=== PATIENT | male | born 1975 | race Caucasian/White ===

== ENCOUNTER 2021-02-01 13:35 | Emergency (ER) | payer OTHER, SELFPAY ==
[2021-02-01 16:11] VITALS: BP 139/94; PULSE 103; RESP 18; TEMP 37.2; O2SAT 98; BMI 38.0
--- NOTE | 2021-02-01 16:16 | HMH.EDUTC ---
[facility] [place] Disposition Clinical Impression: Sinusitis, Exposure to COVID-19 virus Disposition: Home, Self-Care Condition on Discharge: Good Instructions: DI for Sinusitis Additional Instructions: You have been tested for COVID19. Please isolate yourself as if you are positive until test results received. Prescriptions: Amoxicillin/Potassium Clav [Augmentin 875-125 Tablet] 1 tab PO Q12H 10 Days #20 tab Transmission Status: Pending to [facility] predniSONE [Prednisone 20mg Tab] 20 mg PO BID 5 Days #10 tab Transmission Status: Pending to [facility] Referrals: Ronal Cotter [Primary Care Provider] - Forms: Work/School Release Time of Disposition: 16:31 Medical Decision Making - Dominik Inquiry Pt receiving controlled substance: No Vital Signs: 02/01/21 16:11 02/01/21 16:17 Temperature 99 F 98.7 F Temperature Source Oral Pulse Rate 97 H Pulse Rate [Left] 103 H Respiratory Rate 18 18 Blood Pressure 139/94 H Blood Pressure [Right Arm] 139/94 H Blood Pressure Mean [Right Arm] 109 02 Sat by Pulse Oximetry 98 Orders (Tests/Meds): ORDERS Category Date Time Status Covid-19 Nasal PCR ([facility]) Routine Lab 02/01/21 16:17 Ordered [facility] [place] HPI - General Stated complaint: sinus pain, headache, fever Time Seen by Provider: 02/01/21 16:16 - History of Present Illness Provider Complaint: Sinus pain and congestion X 4 days. Fever and headache X 2 days. Several coworkers have tested positive for COVID19. Onset (ago): day(s) (4) Location: head Consistency: constant Relieving factors: none Exacerbating factors: none Associated symptoms: fever/chills, headaches, malaise Treatments prior to arrival: none - Related Data Previous Rx's Medication Instructions Recorded Amoxicillin/Potassium Clav 1 tab PO Q12H 10 Days #20 tab 02/01/21 [Augmentin 875-125 Tablet] predniSONE [Prednisone 20mg 20 mg PO BID 5 Days #10 tab 02/01/21 Tab] Allergies Allergy/AdvReac Type Severity Reaction Status Date / Time Sulfa (Sulfonamide Allergy Verified 02/01/21 16:17 Antibiotics) [facility] History - Hepatitis A Screen Attestation statement:: This patient has been screened for Hepatitis A risk factors. I have reviewed the patient's past medical history: Yes ROS Obtained: Yes All systems reviewed & no additional complaints - Constitutional Constitutional: Reports body ache, Reports chills, Reports fatigue, Reports fever(s), Reports malaise - ENT Ears, Nose, Mouth, and Throat: Reports sinus pain, Reports sinus pressure Physical Exam - General General appearance: alert, in no apparent distress - Head Head exam: normocephalic - Eye Eye exam: Present: PERRL - ENT ENT exam: Present: normal oropharynx, TM's normal bilaterally - Expanded ENT Exam Nose exam: Present: sinus tenderness Throat exam: Present: normal inspection - Neck Neck exam: Present: normal inspection - Chest Chest inspection: Present: normal inspection, symmetric chest wall rise - Respiratory Respiratory exam: Present: normal lung sounds bilaterally - Cardiovascular Cardiovascular exam: Present: regular rate, normal rhythm - Neurological Exam Neurological exam: Present: alert, oriented X3 - Psychiatric Psychiatric exam: Present: normal affect, normal mood - Skin Skin exam: Present: warm, dry, intact
[2021-02-01 16:17] VITALS: BP 139/94; PULSE 97; RESP 18; TEMP 37.1
== END 2021-02-01 16:55 | disposition home or self-care (01) ==
PROVIDERS: Emergency Provider Physician Assistant; PCP Family Medicine
DX: U07.1 COVID-19 (principal); Z20.822 Contact with and (suspected) exposure to COVID-19
CPT/HCPCS: 99202; G0463; U0003

== ENCOUNTER → 2023-01-05 08:54 | Outpatient (CLI) | payer OTHER, SELFPAY ==
--- NOTE | 2023-01-05 08:54 | US_ITS ---
FINAL REPORT CLINICAL HISTORY: bilateral leg weakness FINDINGS: COMPLETE ANKLE/BRACHIAL INDICES BILATERAL Complete ankle brachial indices were obtained. The right GLADIS is 1.3. The left GLADIS is 1.2. IMPRESSION: ABIs are within normal limits bilaterally. Reviewed, Interpreted and Dictated by Ulices Ignacio III, MD Transcribed by Jinny Owens Authenticated and . [facility]
--- NOTE | 2023-01-05 08:54 | CA_ITS ---
FINAL REPORT TECHNIQUE: Duplex color Doppler with spectral analysis performed of the lower extremities. CLINICAL HISTORY: claudication, HTN FINDINGS: RIGHT LOWER EXTREMITY: Velocities cm/sec: ROLL LINE OPERATOR: 89 SFA Prox: 73 SFA Mid: 72 SFA Dist: 68 POP: 49 CNP: 48 TARAN: 50 PER A PROX: 41 Waveforms are triphasic. LEFT LOWER EXTREMITY: Velocities cm/sec: ROLL LINE OPERATOR: 76 SFA Prox: 60 SFA Mid: 62 SFA Dist: 53 POP: 37 CNP: 48 TARAN: 42 PER A PROX:50 Waveforms are triphasic. IMPRESSION: No significant peripheral artery disease. Reviewed, Interpreted and Dictated by Ulices Ignacio III, MD Transcribed by Jinny Owens Authenticated and [facility]
[2023-01-05 09:34] VITALS: BMI 38.0
[2023-01-05 09:59] VITALS: BP 142/85; PULSE 67; RESP 18; TEMP 36.1; O2SAT 99
[2023-01-05 10:14] LABS: Chloride 102 mmol/L (98-107); Potassium 4.3 mmoL/L (3.5-5.1); Sodium 140 mmol/L (136-145)
[2023-01-05 10:17] LABS: Anion Gap 9.3 mEq/L (5-15); Blood Urea Nitrogen 21 mg/dl (9-20); Calcium 9.5 mg/dl (8.4-10.2); Carbon Dioxide 33 mmol/L (22.0-30.0); Creatinine Clearance Estimated 121 mL/min (50-200); Estimated Glomerular Filt Rate 65 ml/min (>60); GFR (African American) 78 ML/MIN (>60); Glucose 78 mg/dl (74-100)
[2023-01-05 10:30] VITALS: BP 111/77; PULSE 58; RESP 18; O2SAT 99
== END ==
PROVIDERS: PCP Family Medicine; Visit Provider Nurse Practitioner
DX: R06.00 Dyspnea, unspecified (principal); R29.898 Other symptoms and signs involving the musculoskeletal system; I73.9 Peripheral vascular disease, unspecified; E66.9 Obesity, unspecified; Z68.38 Body mass index [BMI] 38.0-38.9, adult; Z82.49 Family history of ischemic heart disease and other diseases of the circulatory system
CPT/HCPCS: 75574; 80048; 93923; 93925; Q9967

== ENCOUNTER → 2023-01-10 15:01 | Outpatient (POV) | payer OTHER, SELFPAY ==
[2023-01-10 15:39] VITALS: BP 137/88; PULSE 76; RESP 18; O2SAT 98; BMI 37.2
--- NOTE | 2023-01-10 15:46 | EXP.PAIN.OV ---
HPI Data of Consult Patient: new to practice Consult date: 01/10/23 Requesting Physician: Shelbi Rawls APRN Primary Care Provider: Ronal Cotter Consult Narrative Reason for consult: Left hip pain, low back pain History of present illness: Mr. Britt is a 47 year old male who presents today as a new patient. He is a referral from Dr. Huston's office. Today he rates his pain a 4 out of 10. Patient states his pain is all around his low back at the left side and into his left hip with sometimes radiating symptoms to his groin. Patient does describe this as an aching, sharp sensation that is worse with increased activity. He does state often times it is worse with prolonged sitting, walking or going up stairs. Patient denies any specific trauma or injury that initially led to the symptoms. He states it has been going on for the last couple of years and originally he was able to go to the chiropractor and get improvement. He states over the last 6 months or more when he did go it did not relieve his symptoms. He does state that it helps some however he continues to have the constant pain. Patient did go to Dr. Brown office to see about possible injections however he stated he did not do SI or hip injections. He states he did give a oral steroid pack however it did not really provide good relief. Patient does do at home exercising and stretching for longer than 6 weeks with minimal improvement. Patient has also been to Dr. Ramirez in [place] for his low back pain and neck pain where Dr. Ramirez was not recommending lumbar surgery. He states in the past he has mentioned about doing a cervical fusion however he told the patient that he would not recommend until he was having worsening pain symptoms. Patient denies any recent imaging. He is currently managed with tramadol 50 mg twice a day and pregabalin 75 mg twice a day from outside providers. Patient denies any side effects from this medication. He does state that he has tried [id number] medications such as Tylenol and ibuprofen along with heat and ice and topicals with minimal relief. His Dominik is [id number]. Its been reviewed and appropriate. *Patient has done conservative therapy for longer than 6 months for this current episode including medications prescribed by his primary care doctor and stretching and exercises at home for the entire length of this timeframe with minimal relief. CC: Shelbi Rawls APRN [facility] Disclaimer: The information contained in this section may have been updated after the patient was seen, as this information can be updated by other users. Medical History (Updated 01/10/23 @ 15:54 by Shelbi Rawls APRN) Arthritis Claudication Dehiscence of appendectomy wound Dyspnea HTN (hypertension) with goal to be determined Obesity Surgical History History of appendectomy History of carpal tunnel release Status post de Quervain's release surgery Family History Other Family history of cardiac disorder Family history of diabetes mellitus Social History (Updated 01/10/23 @ 15:39 by Adelaida Sosa RN) Smoking Status: Never smoker alcohol intake: never substance use type: denies use current occupational status: employed Travel in the last 8 weeks: None Review of Systems Review of Systems Review of systems:: pertinent systems reviewed and negative unless documented below Review of systems (narrative): Review of Systems: General: No recent weight changes, no fever, no sleep disturbances Respiratory: No cough, no shortness of air, no recurring pulmonary infections Cardiovascular/peripheral vascular: No chest pain, no palpitations, no edema, no shortness of breath Gastrointestinal: No new onset incontinence, normal bowel movements reported Genitourinary: No new onset incontinence Musculoskeletal: Low back pain, left-sided, left hip pain, lef
== END | disposition home or self-care (01) ==
PROVIDERS: PCP Family Medicine; Visit Provider Nurse Practitioner Family
DX: M54.42 Lumbago with sciatica, left side (principal); G89.29 Other chronic pain; M25.552 Pain in left hip; M46.1 Sacroiliitis, not elsewhere classified
CPT/HCPCS: 99202; G0463

== ENCOUNTER 2023-01-25 13:32 | Day surgery (SDC) | payer OTHER, SELFPAY ==
[2023-01-25 13:54] VITALS: BP 130/88; PULSE 92; RESP 18; TEMP 37; O2SAT 99; BMI 36.5
[2023-01-25 13:57] VITALS: BP 141/97; PULSE 86; RESP 18; O2SAT 96
[2023-01-25 14:01] VITALS: BP 141/97; PULSE 86; RESP 18; O2SAT 98
[2023-01-25 14:02] VITALS: BP 131/86; PULSE 79; RESP 18; O2SAT 99
--- NOTE | 2023-01-25 14:08 | EXP.PAIN.PRO ---
Procedure Date: 01/25/23 Time: 13:50 Anesthesiologist:: Lio Bucio CRNA Complications:: None Pre-procedure Diagnosis:: Left sacroiliitis. Post-procedure Diagnosis:: Same. Indications for Procedure:: Patient is a very pleasant 47-year-old male who comes our clinic today for left sacroiliac joint injection. Patient has extreme point tenderness over the left sacroiliac joint upon examination. Patient complains of difficulty transitioning from sitting to standing. Ambulation increases point tenderness over the left sacroiliac joint. He rates his pain 6/10. Procedure Details:: Procedure: Left sacroiliac injection under fluoroscopy Informed consent was obtained and the risk and benefits of the procedure were explained to the patient.~ The patient was taken to the procedure room and noninvasive monitors were placed including noninvasive blood pressure cuff and pulse oximeter.~ The patient was placed prone on the procedure table.~ The~ left hip was cleansed using Betadine as a cleansing solution.~ C-arm fluorosocpy was used to view the left SI joint.~ The skin and subcutaneous tissues were anesthetized using Lidocaine 1.5% and a 25-gauge needle.~ After this, a 22-gauge spinal needle was inserted under fluoroscopic guidance into the inferior aspect of the left SI joint.~ Omnipaque dye was injected and a good spread was seen throughout the joint.~ After this, approximately 5 mL of bupivacaine 0.25% and Depo-Medrol 40 mg was incrementally injected into the sacroiliac joint.~ The patient tolerated the procedure well with no complications.~ The patient was observed in the Pain Clinic for a period of 30-45 minutes, then discharged home neurologically intact.~ Plan and Disposition:: Patient was discharged without incident.
== END 2023-01-25 14:02 | disposition home or self-care (01) ==
LOC: SC.PAINP 13:33
PROVIDERS: PCP Family Medicine; Visit Provider Nurse Anesthetist, Certified Registered
DX: M46.1 Sacroiliitis, not elsewhere classified (principal)
CPT/HCPCS: 27096; G0260; J1040

== ENCOUNTER → 2023-02-16 15:07 | Outpatient (POV) | payer OTHER, SELFPAY ==
--- NOTE | 2023-02-16 15:20 | EXP.PAIN.SOA ---
[facility] Pain Management SOAP Note Subjective:: Patient is a pleasant 47-year-old male who presents today for follow-up of left SI injection on 01/25/2023. We are currently treating the patient for low back pain with left hip pain, left sacroiliitis. Today he rates his pain a 2 out of 10. Patient states he has had at least a 50% improvement following this injection and that he notices improvement with his movements that they are easier and not as intense. He states he does still have some pressure in that area that he notices with prolonged sitting however it is overall much more tolerable. He does state that he has noticed a new pain under his left buttocks area and thinks he might of pulled a muscle. He also states that his left foot on the side has moments of where it feels that it gets warm. He is unsure if this has anything to do with the possible muscle pull. Patient is currently prescribed tramadol 50 mg twice a day and pregabalin 75 mg twice a day. Patient denies any side effects from these medications. He does state that he just recently was changed to the gabapentin. His Dominik is [id number]. Its been reviewed and appropriate. Review of Systems: General: No recent weight changes, no fever, no sleep disturbances Respiratory: No cough, no shortness of air, no recurring pulmonary infections Cardiovascular/peripheral vascular: No chest pain, no palpitations, no edema, no shortness of breath Gastrointestinal: No new onset incontinence, normal bowel movements reported Genitourinary: No new onset incontinence Musculoskeletal: Low back pain, left buttocks pain Psychiatric: [Normal mood/affect] Neurological: [Denies weakness in extremities], [denies balance issues] Objective:: Physical Exam: General: Alert and oriented x3, no acute distress, pleasant and cooperative Lungs: Respirations even and unlabored, symmetrical chest expansion Eyes: PERRL Musculoskeletal: Flexion and extension of lumbar [spine] somewhat guarded secondary to pain, [antalgic gait noted] point tenderness along left piriformis muscle Neurological: Speech clear, no gross sensory deficit Assessment:: Low back pain with left hip pain, left sacroiliitis left piriformis syndrome Plan:: Patient has had significant improvement following his SI injection however he has new point tenderness along his left piriformis muscle. I have discussed with the patient that he may benefit from a piriformis injection. Risk and benefits were explained to the patient however at this time he would like to wait. I will order the patient a compounding cream. Patient will return to clinic in 1 month for reevaluation of symptoms and plan of care. Patient has been instructed to contact the clinic with any concerns before the next appointment. Dr. Diaz has reviewed this note and agrees with this plan of care. This note was dictated using voice recognition software and make contain errors or omissions. [facility] Disclaimer: The information contained in this section may have been updated after the patient was seen, as this information can be updated by other users. Medical History Arthritis Claudication Dehiscence of appendectomy wound Dyspnea HTN (hypertension) with goal to be determined Obesity Surgical History History of appendectomy History of carpal tunnel release Status post de Quervain's release surgery Family History Other Family history of cardiac disorder Family history of diabetes mellitus Social History Smoking Status: Never smoker alcohol intake: never substance use type: denies use current occupational status: employed Travel in the last 8 weeks: None
[2023-02-16 15:39] VITALS: BP 125/87; PULSE 75; RESP 18; O2SAT 99; BMI 36.9
== END ==
PROVIDERS: PCP Family Medicine; Visit Provider Nurse Practitioner Family
DX: M46.1 Sacroiliitis, not elsewhere classified (principal); G57.02 Lesion of sciatic nerve, left lower limb; M54.50 Low back pain, unspecified
CPT/HCPCS: 99212; G0463

== ENCOUNTER → 2023-03-23 15:03 | Outpatient (POV) | payer OTHER, SELFPAY ==
--- NOTE | 2023-03-23 15:50 | EXP.PAIN.SOA ---
[facility] Pain Management SOAP Note Subjective:: Patient is a pleasant 47-year-old male who presents today for 1 month follow-up. We are currently treating the patient for degenerative disc disease of lumbar spine with lumbar radiculopathy symptoms, left hip pain, left sacroiliitis. Today he rates his pain a 4 out of 10. Patient denies any new trauma or injury. He does state that he started to experience a little bit more pain since our last visit. Patient did previously have a left SI injection that did provide at least 50% improvement and was continuing to provide relief at his last visit. He does state that he still has much more improvement from his initial visit to our office and that it is still manageable. He does state that he notices some more pain in his lower buttocks but it is often with prolonged positioning of sitting a certain way. From our last visit he also states he continues to have the warm sensation that is in his lower left foot. He states there is no pain or burning and that when he touches around the area it does not feel hot. Patient was prescribed compounding cream at our last visit and he states it does help. Patient denies trying the cream on his foot area. His Dominik is [id number]. Its been reviewed and appropriate. Review of Systems: General: No recent weight changes, no fever, no sleep disturbances Respiratory: No cough, no shortness of air, no recurring pulmonary infections Cardiovascular/peripheral vascular: No chest pain, no palpitations, no edema, no shortness of breath Gastrointestinal: No new onset incontinence, normal bowel movements reported Genitourinary: No new onset incontinence Musculoskeletal: Left hip pain Psychiatric: [Normal mood/affect] Neurological: [Denies weakness in extremities], [denies balance issues] Objective:: Physical Exam: General: Alert and oriented x3, no acute distress, pleasant and cooperative Lungs: Respirations even and unlabored, symmetrical chest expansion Eyes: PERRL Musculoskeletal: Flexion and extension of lumbar [spine] somewhat guarded secondary to pain Neurological: Speech clear, no gross sensory deficit Assessment:: Degenerative disc disease of lumbar spine with lumbar radiculopathy symptoms, left hip pain, left sacroiliitis Plan:: Patient has continued to have relief following his SI injection and currently states his pain is still manageable. I have discussed with the patient in future that he may benefit from left-sided piriformis injections or possible left superior cluneal injections. We will discuss this at future visits. Patient will return to clinic in 1 month for reevaluation of symptoms and plan of care. Patient has been instructed to contact the clinic with any concerns before the next appointment. Dr. Diaz has reviewed this note and agrees with this plan of care. This note was dictated using voice recognition software and make contain errors or omissions. [facility] Disclaimer: The information contained in this section may have been updated after the patient was seen, as this information can be updated by other users. Medical History Arthritis Claudication Dehiscence of appendectomy wound Dyspnea HTN (hypertension) with goal to be determined Obesity Surgical History History of appendectomy History of carpal tunnel release Status post de Quervain's release surgery Family History Other Family history of cardiac disorder Family history of diabetes mellitus Social History Smoking Status: Never smoker alcohol intake: never substance use type: denies use current occupational status: employed Travel in the last 8 weeks: None
[2023-03-23 16:03] VITALS: BP 136/90; PULSE 72; RESP 18; O2SAT 96; BMI 36.9
== END ==
PROVIDERS: PCP Family Medicine; Visit Provider Nurse Practitioner Family
DX: M51.16 Intervertebral disc disorders with radiculopathy, lumbar region (principal); M25.552 Pain in left hip; M46.1 Sacroiliitis, not elsewhere classified
CPT/HCPCS: 99212; G0463

== ENCOUNTER → 2023-04-20 11:23 | Outpatient (POV) | payer OTHER, SELFPAY ==
[2023-04-20 12:03] VITALS: BP 146/97; PULSE 83; RESP 18; O2SAT 98; BMI 35.9
--- NOTE | 2023-04-20 12:05 | EXP.PAIN.SOA ---
[facility] Pain Management SOAP Note Subjective:: Patient is a pleasant 47-year-old male who presents today for 1 month follow-up. We are currently treating the patient for degenerative disc disease of lumbar spine with lumbar radiculopathy symptoms, sacroiliitis, left hip pain. Today he rates his pain as a 2 out of 10. Patient denies any new trauma or injury from our last visit. He does state that he will occasionally have flareups in his low back and into his hip. He does describe it as an aching, throbbing sensation with occasional sharp stabbing pains that is worse with increased activity or ambulation. He does state from the last injection of his SI joint that it does still seem to be manageable. He states the pain came come and go at different times. Patient states he has been off this last week for vacation at work. He is prescribed compounding cream. Patient denies any recent imaging and does state that he is questioning whether or not anything has worsened since his last imaging. His Dominik has been reviewed and is appropriate. Review of Systems: General: No recent weight changes, no fever, no sleep disturbances Respiratory: No cough, no shortness of air, no recurring pulmonary infections Cardiovascular/peripheral vascular: No chest pain, no palpitations, no edema, no shortness of breath Gastrointestinal: No new onset incontinence, normal bowel movements reported Genitourinary: No new onset incontinence Musculoskeletal: Low back pain, hip pain Psychiatric: [Normal mood/affect] Neurological: [Denies weakness in extremities], [denies balance issues] Objective:: Physical Exam: General: Alert and oriented x3, no acute distress, pleasant and cooperative Lungs: Respirations even and unlabored, symmetrical chest expansion Eyes: PERRL Musculoskeletal: Flexion and extension of lumbar [spine] somewhat guarded secondary to pain, [antalgic gait noted] Neurological: Speech clear, no gross sensory deficit Assessment:: Degenerative disc disease of lumbar spine with lumbar radiculopathy symptoms, sacroiliitis, left hip pain Plan:: Patient does continue to have pain in his low back with radiating symptoms. Patient had limited range of motion of his lumbar spine. I have discussed with the patient that it may be beneficial to order updated imaging. Patient acknowledges and agrees with this plan of care. I will order x-ray imaging of his lumbar spine along with his bilateral SI joints and MRI without contrast of his lumbar spine to follow. Patient will return to clinic in 1 month following his imaging for reevaluation of symptoms and plan of care. Patient has been instructed to contact the clinic with any concerns before the next appointment. Dr. Diaz has reviewed this note and agrees with this plan of care. This note was dictated using voice recognition software and make contain errors or omissions. [facility] Disclaimer: The information contained in this section may have been updated after the patient was seen, as this information can be updated by other users. Medical History Arthritis Claudication Dehiscence of appendectomy wound Dyspnea HTN (hypertension) with goal to be determined Obesity Surgical History History of appendectomy History of carpal tunnel release Status post de Quervain's release surgery Family History Other Family history of cardiac disorder Family history of diabetes mellitus Social History Smoking Status: Never smoker alcohol intake: never substance use type: denies use current occupational status: employed Travel in the last 8 weeks: None
== END ==
LOC: SC.PAIN 11:24
PROVIDERS: PCP Family Medicine; Visit Provider Nurse Practitioner Family
DX: M51.16 Intervertebral disc disorders with radiculopathy, lumbar region (principal); M46.1 Sacroiliitis, not elsewhere classified; M25.552 Pain in left hip
CPT/HCPCS: 99212; G0463

== ENCOUNTER → 2023-05-19 09:19 | Outpatient (CLI) | payer OTHER, SELFPAY ==
--- NOTE | 2023-05-19 09:24 | MR_ITS ---
FINAL REPORT CLINICAL HISTORY: LOW BACK PAIN COMPARISON: None FINDINGS: Multiplanar MR imaging of the lumbar spine was performed without contrast. On the sagittal T2-weighted images, there is abnormal decreased signal L1-2 through L4-5. The vertebrae are of normal height. The vertebral alignment is normal. T12-L1: There is no significant canal stenosis or neuroforaminal narrowing. L1-2: Mild diffuse disc bulge. Mild to moderate bilateral neuroforaminal narrowing. L2-3: Mild diffuse disc bulge. Moderate bilateral neuroforaminal narrowing. L3-4: Mild diffuse disc bulge. Mild to moderate bilateral neuroforaminal narrowing. L4-5: Moderate diffuse disc bulge. Moderate bilateral neuroforaminal narrowing. L5-S1: Broad-based midline disc protrusion. Mild spinal canal compromise. IMPRESSION: Neuroforaminal narrowing at L2-3, L3-4, and L4-5. Broad-based midline protrusion at L5-S1 with spinal canal compromise. Reviewed, Interpreted and Dictated by Miguel Slaughter MD Transcribed by Malinda Longoria Authenticated and [facility]
== END ==
PROVIDERS: PCP Family Medicine; Visit Provider Nurse Practitioner Family
DX: M54.50 Low back pain, unspecified (principal)
CPT/HCPCS: 72148; 76376

== ENCOUNTER → 2023-05-31 11:24 | Outpatient (POV) | payer OTHER, SELFPAY ==
[2023-05-31 11:40] VITALS: BP 143/96; PULSE 85; RESP 18; O2SAT 97; BMI 354.9
--- NOTE | 2023-05-31 11:48 | EXP.PAIN.SOA ---
[facility] Pain Management SOAP Note Subjective:: Patient is a very pleasant 39-year-old male comes our clinic today for follow-up visit regarding low left side back pain as well as left hip radicular symptoms at times. Patient works full-time at a factory. He reports being on his feet 10 to 12 hours a day. Patient is status post left sacroiliac joint injection several months ago. He reports some minimal relief regarding that injection. I reviewed the patient's lumbar MRI with him today. He has multilevel degenerative disc lumbar spine. Multilevel disc bulge lumbar spine. His Dominik #[id number] is been reviewed and appropriate. Patient rates his pain 2/10. Patient takesNubametane 750 mg 1 p.o. twice daily from his PCP. Patient states this medication does help lower his pain level overall. Objective:: Patient is awake alert [place] x 3. In no acute distress. Flexion-extension lumbar spine somewhat guarded secondary to pain. Deep tendon reflexes upper and lower extremities normal. Motor strength upper and lower extremities normal. There is no gross sensory deficit. Gait is normal. Assessment:: Degenerative disc disease lumbar spine multilevels. Lumbar radiculopathy. Multilevel disc bulge lumbar spine. Plan:: Discussed lumbar epidural steroid injection at the L4-5 level with the patient. Answered his questions. Patient will think about this intervention regarding his low back pain as well as left hip and leg radicular symptoms. [facility] Disclaimer: The information contained in this section may have been updated after the patient was seen, as this information can be updated by other users. Medical History Arthritis Claudication Dehiscence of appendectomy wound Dyspnea HTN (hypertension) with goal to be determined Obesity Surgical History History of appendectomy History of carpal tunnel release Status post de Quervain's release surgery Family History Other Family history of cardiac disorder Family history of diabetes mellitus Social History Smoking Status: Never smoker alcohol intake: never substance use type: denies use current occupational status: employed Travel in the last 8 weeks: None
== END ==
LOC: SC.PAIN 11:24
PROVIDERS: PCP Family Medicine; Visit Provider Nurse Anesthetist, Certified Registered
DX: M51.16 Intervertebral disc disorders with radiculopathy, lumbar region (principal); M51.26 Other intervertebral disc displacement, lumbar region; M46.1 Sacroiliitis, not elsewhere classified
CPT/HCPCS: 99212; G0463

== ENCOUNTER 2023-06-27 15:33 | Outpatient (CLI) | payer BC, SELFPAY ==
--- NOTE | 2023-06-27 15:43 | XR_ITS ---
FINAL REPORT CLINICAL HISTORY: LT FOOT PAIN FINDINGS: LEFT FOOT Three views of the left foot demonstrate no acute fracture or dislocation. The visualized joint spaces are normally aligned. There is a moderate-sized plantar spur. The soft tissues are unremarkable. IMPRESSION: No acute bony abnormality. Reviewed, Interpreted and Dictated by Miguel Slaughter MD Transcribed by Piper Hernandez Authenticated and [facility]
== END 2023-06-27 23:59 ==
LOC: RAD 15:37
PROVIDERS: PCP Family Medicine; Visit Provider Nurse Practitioner Family
DX: M79.672 Pain in left foot (principal)
CPT/HCPCS: 73630

== ENCOUNTER 2024-01-19 15:05 | Outpatient (POV) | payer BC, SELFPAY ==
[2024-01-19 15:40] VITALS: BP 129/85; PULSE 86; RESP 16; O2SAT 96; BMI 37.2
--- NOTE | 2024-01-19 16:11 | A.OFFVIS_ITS ---
[facility] Disclaimer: The information contained in this section may have been updated after the patient was seen, as this information can be updated by other users. Medical History Arthritis Claudication Dehiscence of appendectomy wound Dyspnea HTN (hypertension) with goal to be determined Obesity Surgical History History of appendectomy History of carpal tunnel release Status post de Quervain's release surgery Family History Other Family history of cardiac disorder Family history of diabetes mellitus Social History Smoking Status: Never smoker alcohol intake: never substance use type: denies use current occupational status: other Travel in the last 8 weeks: None PM Subjective & Objective Subjective Subjective:: Patient is a pleasant 48-year-old male who presents today for follow-up. Today he rates his pain a 3 out of 10. Patient does state that the Lyrica his PCP provided is helping significantly in combination with the compounded cream from our office. Patient does state that it significantly helps his hip as well as when he gets migraines he puts it on the back of his neck and it is relieved very quickly. Patient does state that he needs refills on his compounded cream. His Dominik has been reviewed and is appropriate. Review of Systems: General: No recent weight changes, no fever, no sleep disturbances Respiratory: No cough, no shortness of air, no recurring pulmonary infections Cardiovascular/peripheral vascular: No chest pain, no palpitations, no edema, no shortness of breath Gastrointestinal: No new onset incontinence, normal bowel movements reported Genitourinary: No new onset incontinence Musculoskeletal: Low back pain, hip pain Psychiatric: [Normal mood/affect] Neurological: [Denies weakness in extremities], [denies balance issues] Pain at rest (0-10 scale): 3 Objective Objective:: Physical Exam: General: Alert and oriented x3, no acute distress, pleasant and cooperative Lungs: Respirations even and unlabored, symmetrical chest expansion Eyes: PERRL Musculoskeletal: Flexion and extension of lumbar [spine] somewhat guarded secondary to pain, [antalgic gait noted] Neurological: Speech clear, no gross sensory deficit Has patient had previous pain injection?: No Conservative treatment options previously tried: Home exercise plan Length of treatment: Longer than 6 weeks Meds Home Medications and Allergies Home Medications ?Medication ?Instructions ?Recorded ?Confirmed ?Type duloxetine 60 mg capsule,delayed 60 mg PO DAILY . 12/27/22 01/19/24 History release esomeprazole magnesium 40 mg 40 mg PO DAILY . 12/27/22 01/19/24 History capsule,delayed release gabapentin 100 mg capsule 100 mg PO DAILY PRN Pain 12/27/22 01/19/24 History losartan 50 mg tablet 25 mg PO DAILY . 12/27/22 01/19/24 History nabumetone 750 mg tablet 750 mg PO BID . 12/27/22 01/19/24 History tramadol 50 mg tablet 50 mg PO BID Pain 12/27/22 01/19/24 History New Prescriptions to Start Prescriptions: Allergies Allergy/AdvReac Type Severity Reaction Status Date / Time Sulfa (Sulfonamide Allergy Verified 07/21/23 15:10 Antibiotics) Assessment and Plan *Assessment and plan (1) Low back pain: Status: Acute Qualifiers: Chronicity: chronic Back pain laterality: left Sciatica presence: with sciatica Sciatica laterality: sciatica of left side Qualified Code(s): M54.42 - Lumbago with sciatica, left side; G89.29 - Other chronic pain Category: Medical Code(s): M54.50 - Low back pain, unspecified (2) Left hip pain: Status: Acute Category: Medical Code(s): M25.552 - Pain in left hip Plan I will refill the patient's compounded cream and provide 5 additional refills. Patient will return to clinic in 6 months for reevaluation of symptoms and plan of care. Patient has been instructed to contact the clinic with any concerns before the next appointment. Dr. Diaz has reviewed this note and agrees with this plan of care. This note was dictated using voice recognition software and make contain errors or omissions. All injections are used with Lidocaine or Bupivacaine and Depo Medrol.
== END 2024-01-19 23:59 | disposition home or self-care (01) ==
LOC: SC.PAIN 15:06
PROVIDERS: PCP Family Medicine; Visit Provider Nurse Practitioner Family
DX: M54.42 Lumbago with sciatica, left side (principal); G89.29 Other chronic pain; M25.552 Pain in left hip
CPT/HCPCS: 99212; G0463

== ENCOUNTER 2024-03-28 15:16 | Outpatient (CLI) | payer BC, SELFPAY ==
--- NOTE | 2024-03-28 15:18 | XR_ITS ---
PROCEDURE INFORMATION: Exam: XR Left Foot Exam date and time: 03/28/2024 3:19 PM Age: 48 years old Clinical indication: Pain; Foot; Left; Additional info: Foot pain TECHNIQUE: Imaging protocol: Radiologic exam of the left foot. Views: 3 or more views. COMPARISON: CR XR FOOT WT BEARING LT 3V 03/28/2024 3:19 PM FINDINGS: Bones/joints: There is no evidence of acute fracture.There is no evidence of malalignment or dislocation. Degenerative changes in the 1st metatarsophalangeal joint and IP joint Soft tissues: Normal. IMPRESSION: There is no evidence of acute fracture.There is no evidence of malalignment or dislocation.
--- NOTE | 2024-03-28 15:18 | XR_ITS ---
PROCEDURE INFORMATION: Exam: XR Right Foot Exam date and time: 03/28/2024 3:19 PM Age: 48 years old Clinical indication: Pain; Foot; Right; Additional info: Foot pain TECHNIQUE: Imaging protocol: Radiologic exam of the right foot. Views: 3 or more views. COMPARISON: US ARTERIAL LOWER EXT REST 01/05/2023 1:13 PM FINDINGS: Bones/joints: Degenerative changes in the 1st metatarsophalangeal joint and IP joint and tarsal bones. There is no evidence of acute fracture.There is no evidence of malalignment or dislocation. Soft tissues: Normal. IMPRESSION: There is no evidence of acute fracture.There is no evidence of malalignment or dislocation.
== END 2024-03-28 23:59 | disposition home or self-care (01) ==
LOC: RAD 15:16
PROVIDERS: PCP Family Medicine; Visit Provider Podiatrist
DX: M79.671 Pain in right foot (principal); M79.672 Pain in left foot
CPT/HCPCS: 73630

== ENCOUNTER 2024-04-24 12:32 | Outpatient (CLI) | payer BC, SELFPAY ==
--- NOTE | 2024-04-24 12:38 | XR_ITS ---
FINAL REPORT CLINICAL HISTORY: left foot pain COMPARISON: 06/27/2023 FINDINGS: LEFT FOOT Three views demonstrate no acute fracture or dislocation. The joint spaces appear normal. No acute soft tissue abnormality is seen. A moderate plantar spur is noted. There is an os trigonum posteriorly measuring 11 mm. IMPRESSION: No acute bony abnormality. Reviewed, Interpreted and Dictated by Miguel Slaughter MD Transcribed by Cindy Banks Authenticated and [facility]
== END 2024-04-24 23:59 | disposition home or self-care (01) ==
LOC: RAD 12:33
PROVIDERS: PCP Nurse Practitioner Family; Visit Provider Podiatrist
DX: M79.672 Pain in left foot (principal)
CPT/HCPCS: 73630

== ENCOUNTER 2024-05-16 12:46 | Outpatient (CLI) | payer BC, SELFPAY ==
--- NOTE | 2024-05-16 12:47 | MR_ITS ---
FINAL REPORT CLINICAL HISTORY: Left Foot Stress Fracture. FINDINGS: Multiplanar MR imaging of the foot was performed without contrast. There are mild degenerative changes. The bony structures are intact without evidence of fracture, bone bruise or marrow edema. The flexor and extensor tendons are intact. No ligamentous injury is identified. The musculature is intact. There is posterior plantar fasciitis with full-thickness tear medially. Postoperative change could also have a similar appearance. No soft tissue mass or cyst is identified. IMPRESSION: Posterior plantar fasciitis with full-thickness tear versus postoperative change. Reviewed, Interpreted and Dictated by Ulices Ignacio III, MD Transcribed by Piper Hernandez Authenticated and [facility]
== END 2024-05-16 23:59 | disposition home or self-care (01) ==
PROVIDERS: PCP Nurse Practitioner Family; Visit Provider Podiatrist
DX: M77.52 Other enthesopathy of left foot and ankle (principal); M84.375S Stress fracture, left foot, sequela; M79.672 Pain in left foot
CPT/HCPCS: 73718

== ENCOUNTER 2024-06-14 09:57 | Outpatient (CLI) | payer BC, SELFPAY ==
--- NOTE | 2024-06-14 10:04 | XR_ITS ---
FINAL REPORT CLINICAL HISTORY: Right Shoulder Pain COMPARISON: None FINDINGS: RIGHT SHOULDER Three views demonstrate no acute fracture or dislocation. There are mild hypertrophic changes at the acromioclavicular joint. The glenohumeral joint is intact. The soft tissues are unremarkable. IMPRESSION: Degenerative changes without acute bony abnormality. Reviewed, Interpreted and Dictated by Miguel Slaughter MD Transcribed by Cindy Banks Authenticated and . [facility]
== END 2024-06-14 23:59 | disposition home or self-care (01) ==
LOC: RAD 10:00
PROVIDERS: PCP Nurse Practitioner Family; Visit Provider Physician Assistant
DX: M25.511 Pain in right shoulder (principal)
CPT/HCPCS: 73030

== ENCOUNTER 2024-07-04 15:00 | Outpatient (RCR) | payer BC, SELFPAY ==
--- NOTE | 2024-06-19 14:50 | HMH.PTOPEV ---
PT Outpatient Evaluation Rehab PT Outpatient Evaluation Start: 06/19/24 13:52 Freq: Status: Active Protocol: Document 06/19/24 13:52 [email or web address] (Rec: 06/19/24 14:50 [email or web address] [id number]) E-signed By Lio Ng, PT Outpatient Therapy Subjective History Subjective History Pt. is a 48 year old male who presents to [facility] Outpatient Physical Therapy Services in [place] for the initial evaluation this date(06/19/24) w/ c/o acute on chronic and constant LLE ankle and ft. P!, popping, and stiffness of insidious onset that has progressively been getting worse since 05/20/24. Pt. denies trauma as to onset nor to symptoms worsening. Pt. reports managing LLE plantarfasciitis for 1 year w/ cortisone injections that gave him a little of symptom relief. Pt.'s MD recommended pt. to don CAM bt., however, pt. vocalized is was during the middle of season and he wasn't able to work w/ a CAM bt. on. Pt. then reports symptoms worsening this past [place]. Recent diagnostic imaging(MRI) indicates a tear in the plantar fascia and inflammation in the tendons per pt. report. Pt. reports current precautions include LLE in CAM bt. at all times w/ PWB and bilateral axillary crutches and using his scooter at home at all times. Pt. 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 Pt. RTMD 07/03/24. Current medications include Cymbalta, Nexium, Losartan, Lyrica. PMH includes Hypertension, Osteoarthritis, cervical/lumbar DDD, Appendectomy, S/P BUE CTS and De Quervain's release surgeries. New diagnosis of cancer in past 12 No months? Chief Complaint Pain,Stiff,Gives out/Unstable, Paresthesia,Weakness Symptom Type Ache,Throb,Sharp,Stabbing, Burning,Shooting Symptoms Relieved By Rest/Positioning,Ice,Brace/ Support,Prescription Meds Symptoms Aggravated By Standing,Physical Activity, Walking Prior Functional Limitations None Current Functional Limitations Housework,Driving,Standing, Recreation Activity,Walking, Stairs Symptom Description Constant but Variable,Activity Dependent Level of pain today (0-10) 3 Pain scale - at its best (0-10) 2 Pain scale - at its worst (0-10) 8 Ankle/Foot Eval Gait Observation General Gait Pattern Observation Antalgic Gait,Wide Based Gait, Decrease Weight Bear (L), Decrease Stride Lngth (R) Assistive Device Ambulation Assistive Device None Palpation Tenderness left Ankle/Foot Palpation Findings Tenderness Ankle/Foot Palpation Overall Comment grade 4 +TTP to base 5th, peroneal tendons, navicular, medial cuneiform ATF TTP negative PTF TTP negative CF TTP negative Deltoid ligament TTP negative ROM Ankle/Foot Dorsiflexion w/Knee Extended +1 Active Range Motion (degrees) Ankle/Foot Dorsiflexion w/Knee Extended -7 Passive Range (degrees) Ankle/Foot Plantar Flexion Active Range WFL of Motion (degrees) Ankle/Foot Eversion Active Range of 11 Motion (degrees) Ankle/Foot Eversion Passive Range of 13 Motion (degrees) Ankle/Foot Inversion Active Range of 29 Motion (degrees) Ankle/Foot Inversion Passive Range of 33 Motion (degrees) Ankle/Foot ROM Limitations Soft Tissue Tightness,Muscle Tone,Pain Great Toe ROM Reason Not Measured Within Functional Limits MMT Ankle Dorsiflexion Strength Grade 4- Good- Ankle Plantarflexion Strength Grade 4- Good- Foot Eversion Strength Grade 3+ Fair+ Foot Inversion Strength Grade 3+ Fair+ Ankle Dorsiflexors Muscle Tone Severe Hypertonicity Description Special Tests Ankle Anterior Drawer Test Negative Left Ankle Posterior Drawer Test Negative Left Neuro tests Achilles Tendon (L) 2+ normal sensation to monofilament Yes Outpatient Therapy Assessment Impairments Problems/Impairmments Palpation Tenderness,Impaired Range of Motion,Impaired Strength,Impaired Gait Pattern ,Impaired Walking,Impaired Standing,Impaired Shower/ Bathing,Impaired Household Care,Impaired Stair Climbing, Impaired Incline Stepping, Impaired Stepping on Uneven Surface,Impaired Squatting, Impaired Recreational Activities,Impaired Work Activities,Increased Edema, Subjective C/O Pain,Impaired Self Care/Self Management Prognosis Rehab Potential Good Comment w/ HEP compliancy Clinical Impression Consistent with Diagnosis Yes Consistent with LLE disorder of muscle Additional details: non-traumatic tear of plantar fascia Short Term Goals Number of Weeks 2 Decreased Palpation Tenderness Yes: grade 1-2 +TTP to TTP assessment above Decrease Subjective C/O Pain Yes: worse;5/10 Patient to be Ind w/ HEP Yes Prison Goals Number of Weeks 4-6 Decreased Palpation Tenderness Yes: grade 1 +TTP to TTP assessment above Increase Range of Motion Yes: LLE ankle/ft. A/PROM WFL grossly Increase Strength Yes: 4+ to 5/5 LLE ankle/ft MMT scores grossly Improve Gait Pattern without Assistive Yes Device Increase Ability to Walk Yes: >20' w/o AD nor CAM bt. w /o difficulty Increase Ability to Stand Yes: >10' w/o AD nor CAM bt. w /o difficulty Increase Ability to Drive/Ride in Car Yes: Pt. will be able to operate manual stick truck w/o difficulty Improve Ability to Shower/Bathe Self Yes Improve Ability For Household Care Yes Improve Ability to Climb Stairs Yes Improve Incline Stepping Ability Yes: Pt. 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 Improve Tolerance to Work Activities Yes Improve LEFI Score Yes Improve Self Care/Self Management Yes Patient to be Ind w/ Advanced HEP Yes Outpatient Therapy Plan of Care Treatment Plan May Include Therapeutic Exercise Including Home Yes Exercise Program Manual Therapy Techniques Yes Neuromuscular Re-education Yes Therapeutic Activities to Return to Yes Previous Functional/Work Level Gait Training Yes ADL/Self Care Education Yes Dry Needling Yes Thermal Modalities Yes Electrical Stimulation Yes Ultrasound/Phonophoresis Yes Iontophoresis Yes Vasopneumatic Compression Pump Yes Massage Yes Eval/Re-Eval Yes Frequency Times per week 2-3 Duration Number of Weeks 4-6 Addendums This patient is a candidate for social No or vocational rehab? Patient/Guardian verbally acknowledges Yes understanding of treatment program and consents to further treatment? Patient/Guardian verbally acknowledges Yes understanding of diagnosis, prognosis and goals for treatment? Eval Complexity PT Charges 78131 - Low Complexity Shoulder/Elbow Eval Shoulder Objective Measurements Elbow Objective Measurements PHYSICIAN CERTIFICATION: I certify the specified therapy services for Houston Britt JR are required, authorized, and reviewed every 30 days.
== END 2024-07-04 23:59 | disposition home or self-care (01) ==
LOC: PT 15:00
PROVIDERS: Visit Provider Podiatrist
DX: M25.572 Pain in left ankle and joints of left foot (principal); M62.9 Disorder of muscle, unspecified
CPT/HCPCS: 97035; 97110; 97140; 97163

== ENCOUNTER 2024-07-16 14:00 | Outpatient (RCR) | payer BC, SELFPAY | END 2024-07-16 23:59 | disposition home or self-care (01) | LOC: PT 14:00 | PROVIDERS: Visit Provider Podiatrist | DX: M62.9 Disorder of muscle, unspecified (principal) | CPT/HCPCS: 97110; 97112; 97164; 97530 ==

== ENCOUNTER 2024-07-30 15:28 | Outpatient (POV) | payer BC, SELFPAY ==
[2024-07-30 15:46] VITALS: BP 146/87; PULSE 98; RESP 16; O2SAT 99; BMI 38.7
--- NOTE | 2024-07-30 16:15 | EXP.PAIN.SOA ---
[facility] Disclaimer: The information contained in this section may have been updated after the patient was seen, as this information can be updated by other users. Medical History Dehiscence of appendectomy wound Arthritis HTN (hypertension) with goal to be determined Claudication Obesity Dyspnea Surgical History History of carpal tunnel release Status post de Quervain's release surgery History of appendectomy Family History Other Family history of cardiac disorder Family history of diabetes mellitus Social History Smoking Status: Never smoker alcohol intake: never substance use type: denies use current occupational status: other Travel in the last 8 weeks: None PM Subjective & Objective Subjective Subjective:: Patient is a pleasant 49-year-old male who presents today for 6-month follow-up. Today he rates his pain a 1 out of 10. He denies any new trauma or fall however does state from our last appointment he has been dealing with a torn plantar fascia and has really been down the last 7 weeks. He does state overall that the pain in his low back and hip has been maintaining. He states that he has not even needed his compounded cream as much. Patient denies any other changes. Patient is prescribed compounded cream but states he has not even had to use that that often. His Dominik has been reviewed and is appropriate. Review of Systems: General: No recent weight changes, no fever, no sleep disturbances Respiratory: No cough, no shortness of air, no recurring pulmonary infections Cardiovascular/peripheral vascular: No chest pain, no palpitations, no edema, no shortness of breath Gastrointestinal: No new onset incontinence, normal bowel movements reported Genitourinary: No new onset incontinence Musculoskeletal: Low back pain Psychiatric: [Normal mood/affect] Neurological: [Denies weakness in extremities], [denies balance issues] Pain at rest (0-10 scale): 1 Objective Objective:: Physical Exam: General: Alert and oriented x3, no acute distress, pleasant and cooperative Lungs: Respirations even and unlabored, symmetrical chest expansion Eyes: PERRL Musculoskeletal: Flexion and extension of lumbar [spine] somewhat guarded secondary to pain, [antalgic gait noted] Neurological: Speech clear, no gross sensory deficit Has patient had previous pain injection?: No Conservative treatment options previously tried: Home exercise plan Length of treatment: Longer than 12 weeks Meds Home Medications and Allergies Home Medications ?Medication ?Instructions ?Recorded ?Confirmed ?Type duloxetine 60 mg capsule,delayed 60 mg PO DAILY . 12/27/22 07/30/24 History release esomeprazole magnesium 40 mg 40 mg PO DAILY . 12/27/22 07/30/24 History capsule,delayed release losartan 50 mg tablet 25 mg PO DAILY . 12/27/22 07/30/24 History nabumetone 750 mg tablet 750 mg PO BID . 12/27/22 07/30/24 History tramadol 50 mg tablet 50 mg PO BID Pain 12/27/22 07/30/24 History cream base no.39 (bulk) (Versapro 1 applic topical DIRECTED 04/03/24 07/30/24 History Cream Base topical) ergocalciferol (vitamin D2) 1,250 0 mcg PO DIRECTED 04/03/24 07/30/24 History mcg (50,000 unit) capsule pregabalin 75 mg capsule 75 mg PO DIRECTED 04/03/24 07/30/24 History methylprednisolone 4 mg tablets in 4 mg PO PER PKG DIR Pain, swelling 05/22/24 07/30/24 Rx a dose pack #21 tabs pregabalin 75 mg capsule (Lyrica) 75 mg PO BID 05/22/24 07/30/24 History methocarbamol 500 mg tablet 500 mg PO TID #90 tabs 07/12/24 07/30/24 Rx methylprednisolone 4 mg tablets in 4 mg PO PER PKG DIR Pain, swelling 07/24/24 07/30/24 Rx a dose pack #21 tabs New Prescriptions to Start Prescriptions: Allergies Allergy/AdvReac Type Severity Reaction Status Date / Time Sulfa (Sulfonamide Allergy Verified 07/24/24 09:13 Antibiotics) Assessment and Plan *Assessment and plan (1) Low back pain: Status: Acute Qualifiers: Chronicity: chronic Back pain laterality: left Sciatica presence: with sciatica Sciatica laterality: sciatica of left side Qualified Code(s): M54.42 - Lumbago with sciatica, left side; G89.29 - Other chronic pain Category: Medical Code(s): M54.50 - Low back pain, unspecified (2) Left hip pain: Status: Acute Category: Medical Code(s): M25.552 - Pain in left hip Plan Patient has continued to do well and does not require any additional interventions at this time. Patient will return to clinic in 6 months. Patient has been instructed to contact the clinic with any concerns before the next appointment. Dr. Diaz has reviewed this note and agrees with this plan of care. This note was dictated using voice recognition software and make contain errors or omissions. All injections are used with Lidocaine, Bupivacaine and Depo Medrol. Occasionally urine drug screen is needed to verify patient's compliance with our office pain contract. This is ordered based off specific treatments related to chronic pain with the potential to abuse certain medications.
== END 2024-07-30 23:59 | disposition home or self-care (01) ==
LOC: SC.PAIN 15:29
PROVIDERS: PCP Nurse Practitioner Family; Visit Provider Nurse Practitioner Family
DX: M54.42 Lumbago with sciatica, left side (principal); G89.29 Other chronic pain; M25.552 Pain in left hip
CPT/HCPCS: 99212; G0463

== ENCOUNTER 2024-08-08 09:53 | Outpatient (RCR) | payer BC, SELFPAY | END 2024-08-20 11:01 | disposition home or self-care (01) | LOC: PT.CARL 09:53 | PROVIDERS: Visit Provider Podiatrist | DX: M62.9 Disorder of muscle, unspecified (principal) | CPT/HCPCS: 97110; 97530 ==

== ENCOUNTER 2024-09-18 11:09 | Outpatient (CLI) | payer BC, SELFPAY ==
[2024-09-18 12:07] LABS: Basophils # 0.1 K/mm3 (0-0.2); Basophils % 0.9 % (0.1-2.0); Eosinophils # 0.1 K/mm3 (0.0-0.4); Eosinophils % 1.8 % (0.1-12.0); Hematocrit 40.1 % (42.0-52.0); Hemoglobin 13.6 g/dL (14.1-18.0); Lymphocytes # 2.2 K/mm3 (0.7-4.5); Lymphocytes % 41.2 % (10-50); Mean Corpuscular HGB Conc 33.9 g/dL (31.8-35.4); Mean Corpuscular Hemoglobin 29.8 pg (27.0-31.2); Mean Corpuscular Volume 87.7 fl (80-94); Mean Platelet Volume 10.2 fl (7.4-10.4); Monocytes # 0.5 K/mm3 (0.1-1.0); Monocytes % 8.5 % (1.7-9.3); Neutrophils # 2.6 K/mm3 (1.8-7.8); Neutrophils % 47.4 % (37.0-80.0); Nucleated Red Blood Cells # 0 10^3/uL; Nucleated Red Blood Cells % 0 %; Platelet Count 228 K/mm3 (142-424); Red Blood Count 4.57 M/mm3 (4.60-6.20); Red Cell Distribution Width 12.6 % (11.5-17.5); Red Cell Distribution Width-SD 40.6 fL; White Blood Count 5.4 K/mm3 (4.8-10.8)
[2024-09-18 12:30] LABS: Erythrocyte Sedimentation Rate 14 mm/hr (0-15)
[2024-09-18 12:31] LABS: Alanine Aminotransferase 51 U/L (12-78); Albumin Level 4.4 g/dl (3.5-5.0); Albumin/Globulin Ratio 1.5 (1.1-1.8); Alkaline Phosphatase 81 U/L (38-126); Anion Gap 13.9 mEq/L (5-15); Aspartate Amino Transferase 38 U/L (17-59); Bilirubin,Total 0.8 mg/dl (0.2-1.3); Blood Urea Nitrogen 15 mg/dl (9-20); Calcium 9.4 mg/dl (8.4-10.2); Carbon Dioxide 28 mmol/L (22.0-30.0); Chloride 101 mmol/L (98-107); Estimated Glomerular Filt Rate 71 ml/min (>60); GFR (African American) 86 ML/MIN (>60); Globulin 2.9 g/dL (1.3-3.2); Glucose 95 mg/dl (74-100); Potassium 4.9 mmoL/L (3.5-5.1); Sodium 138 mmol/L (136-145); Total Protein,Serum 7.3 g/dl (6.3-8.2); Uric Acid 7.2 mg/dl (3.5-8.5)
[2024-09-18 12:37] LABS: C-Reactive Protein 2.3 mg/L (0-4)
[2024-09-18 12:38] LABS: Hemoglobin A1C 5.4 % (4.0-6.0)
[2024-09-18 13:01] LABS: Thyroid Stimulating Hormone 0.91 uIU/mL (0.465-4.68)
[2024-09-18 13:20] LABS: Vitamin B12 323 pg/mL (239-931)
[2024-09-18 13:49] LABS: Folate 9.36 ng/mL
[2024-09-19 08:42] LABS: RA Latex Turbid. <10.0 IU/mL (<14.0)
[2024-09-19 11:15] LABS: Antinuclear Antibodies, IFA Negative (.)
[2024-09-26 05:26] LABS: 1,25 Dihydroxy Vitamin D 52 pg/mL (.); 1,25-Dihydroxy, Vitamin D-2 44 pg/mL (.); 1,25-Dihydroxy, Vitamin D-3 <10 pg/mL (.)
== END 2024-09-18 23:59 | disposition home or self-care (01) ==
LOC: LAB 11:10
PROVIDERS: PCP Nurse Practitioner Family; Visit Provider Podiatrist
DX: R60.9 Edema, unspecified (principal); Z68.41 Body mass index [BMI] 40.0-44.9, adult; E66.9 Obesity, unspecified
CPT/HCPCS: 36415; 80053; 82607; 82652; 82746; 83036; 83735; 84443; 84550; 85025; 85651; 86038; 86140; 86431

== ENCOUNTER 2025-03-18 14:43 | Outpatient (CLI) | payer BC, SELFPAY ==
--- OUTSIDE RECORDS SUMMARY | 2025-03-18 14:47 | XMS_ITS | Encounter Summary ---
Author Organization [employer] ([place], [place], [place]) Address [address] [place] [address] Care Team Providers Care Hazmat Cdl Driver Name Role Phone Ronal Cotter MD Primary Care Provider [phone] Reason for Referral * CAT Scan (Routine) - Closed Specialty Diagnoses / Procedures Referred By Contac t Referred To Contact Radiology Diagnoses Lower abdominal pain Procedures CT ABDOMEN/PELVIS WITH & WITHOUT IV CONTRAST Standard Protocol Jacqueline Matute APRN [address] [facility], [facility] [address] [place] [address] Phone: tel: fax: Referral ID Status Reason Start Date Expiration Date Visits Re quested Visits Authorized [id number] Closed 10/18/2022 11/17/2022 1 1 Encounter Details Date Type Department Care Team (Late st Contact Info) Description 10/18/2022 Outside Orders Central Scheduling [address] [place] [address] Jacqueline Matute APRN [address] [facility], [facility] [address] [place] [address] Lower abdominal pain (Primary Dx) Social History Tobacco Use Types Packs/Day Years Used Date Smoking Tobacco: Never Assessed Sex and Gender Information Value Date Recorded Sex Assigned at Not on file Legal Sex Male 1:42 PM CDT Gender Identity Not on file Sexual Orientation Not on file COVID-19 Exposure Response Date Recorded In the last 10 days, have yo u been in contact with someone who was confirmed or suspected to have Coronavirus/COVID-19? No / Unsure 10/21/2022 3:32 PM EDT documented as of this encounter Plan of Treatment Not on file documented as of this encounter Results * CT ABDOMEN/PELVIS WITH & WITHOUT IV CONTRAST Standard Protocol (10/21/2022 4:20 PM EDT) Anatomical Region Laterality Modality Abdomen, Pelvis Computed Tomogra phy (CT) 10/21/2022 4:29 PM EDT Impressions 10/21/2022 4:50 PM EDT No acute process Images reviewed, interpreted, and dictated by Dr. Adolfo Warren. Transcribed by Mike Ferrara PA-C. Narrative 10/21/2022 4:[address] SCAN OF THE ABDOMEN AND PELVIS WITH AND WITHOUT CONTRAST 10/21/2022 3:46 PM HISTORY: Lower abdominal pain. Diarrhea COMPARISON: None. PROCEDURE: The patient was injected with IV contrast. Pre and postcontrast imaging was obtained. Axial images were obtained from the lung bases to the pubic symphysis by computed tomography. Precontrast images of the abdomen and pelvis were also obtained. This study was performed with techniques to keep radiation doses as low as reasonably achievable, (ALARA). Individualized dose reduction techniques using automated exposure control or adjustment of mA and/or kV according to the patient size were employed. FINDINGS: ABDOMEN: The lung bases are clear. The heart is normal in size. The liver is normal. The gallbladder is unremarkable. The spleen is unremarkable. No adrenal mass is present. The pancreas is normal. The kidneys are normal. The aorta is normal in caliber. There is no free fluid or adenopathy. Pre-contrast images demonstrate no evidence of nephrolithiasis. PELVIS: The appendix is not identified. The urinary bladder is unremarkable. There is no significant free fluid or adenopathy. The opacified ureters are unremarkable. Procedure Note Adolfo Warren MD - 10/21/2022 CT SCAN OF THE ABDOMEN AND PELVIS WITH AND WITHOUT CONTRAST 10/21/2022 3:46 PM HISTORY: Lower abdominal pain. Diarrhea COMPARISON: None. PROCEDURE: The patient was injected with IV contrast. Pre and postcontrast imaging was obtained. Axial images were obtained from the lung bases to the pubic symphysis by computed tomography. Precontrast images of the abdomen and pelvis were also obtained. This study was performed with techniques to keep radiation doses as low as reasonably achievable, (ALARA). Individualized dose reduction techniques using automated exposure control or adjustment of mA and/or kV according to the patient size were employed. FINDINGS: ABDOMEN: The lung bases are clear. The heart is normal in size. The liver is normal. The gallbladder is unremarkable. The spleen is unremarkable. No adrenal mass is present. The pancreas is normal. The kidneys are normal. The aorta is normal in caliber. There is no free fluid or adenopathy. Pre-contrast images demonstrate no evidence of nephrolithiasis. PELVIS: The appendix is not identified. The urinary bladder is unremarkable. There is no significant free fluid or adenopathy. The opacified ureters are unremarkable. IMPRESSION: No acute process Images reviewed, interpreted, and dictated by Dr. Adolfo Warren. Transcribed by Mike Ferrara PA-C. Jacqueline Matute APRN IMG CT ORDERABLES Final Re sult documented in this encounter Visit Diagnoses Diagnosis Lower abdominal pain- Primary Abdominal pain, other specified site Lower abdominal pain Abdominal pain, other specified site documented in this encounter Care Teams Hazmat Cdl Driver Relationship Specialty Start Date End Date Ronal Cotter MD [address] [place] [address] PCP - General Family Medicine 10/21/22 documented as of this encounter
--- OUTSIDE RECORDS SUMMARY | 2025-03-18 14:47 | XMS_ITS | Clinical Summary ---
Author Organization [facility] Address [address] [place] [id number] Care Team Providers Care Border Patrol Agent Name Role Phone Unavailable Primary Care Provider Unavailabl e Social History Tobacco Use Types Packs/Day Years Used Date Smoking Tobacco: Never Assessed Abuse Screen Answer Date Recorded Unsafe at Home or Work/School Not on file Feels Threatened by Someone? Not on file Does Anyone Keep You from Co ntacting Others or Doint Things Outside the Home? Not on file 03/18/2023 Physical Sign of Abuse Present Not on file 1 Housing Stability Answer Date Recorded Current Living Arrangements Not on file 03/06 Potentially Unsafe Housing Conditions Not on estefanía e 03/18/2023 Family and Community Support Answer Daron e Recorded Help with Day-to-Day Activities Not on file 03/18/2023 Lonely or Isolated Not on file 03/18/2023 Employment Answer Date Recorded Do you want help finding or keeping work or a ayla b? Not on file 03/18/2023 Disabilities Answer Date Recorded Concentrating, Remembering, or Making Decisions Difficulty Not on file 03/18/2023 Doing Errands Independently Difficulty Not on fi le 03/18/2023 Education Answer Date Recorded Help with school or training? Not on file Preferred Language Not on file 03/18/2023 Sex and Gender Information Value Date Recorded Sex Assigned at Not on file Legal Sex Male 9:19 AM EST Gender Identity Not on file Sexual Orientation Not on file Plan of Treatment Health Maintenance Due Date Last Done Comments TDAP/TD VACCINES (1 - Tdap) 1993 COLOGUARD 2019 COLON CANCER SCREENING 5 YEAR SIGMOIDOSCOPY 2019 COLONOSCOPY 2019 [address] CANCER SCREENING 2019 CT COLONOGRAPHY 2019 FECAL OCCULT BLOOD TEST 2019 FIT Testing (1 year) 2019 ANNUAL PHYSICAL 12/01/2022 HEPATITIS C SCREENING 12/01/2022 Pneumococcal Vaccine 50+ (1 of 1 - PCV) 2024 ZOSTER VACCINE (1 of 2) 2024 INFLUENZA VACCINE 01/04/2025
--- OUTSIDE RECORDS SUMMARY | 2025-03-18 14:47 | XMS_ITS | Referral Summary ---
Author Organization [employer] ([place], [place], [place], [place]) Address [address] [place] [address] Care Team Providers Care Service Vehicle Operator Name Role Phone Ronal Cotter MD Primary Care Provider [phone]- [phone] Allergies No known active allergies Social History Tobacco Use Types Packs/Day Years Used Date Smoking Tobacco: Never Assessed Food Insecurity Answer Date Recorded Food run out past 12 months Not on file 06/06 Food did not last past 12 months Not on file 06/24/2023 Employment Answer Date Recorded Help finding and keeping a job Not on file 0 06/24/2023 Family and Community Support Answer Daron e Recorded Help with Day to Day Activities Not on file 06/24/2023 Feeling Lonely or Isolated Not on file 06/24 Educational Attainment Answer Date Nima rded Speak language other than Serbian at home Not on file 06/24/2023 Want help with school or training Not on file 06/24/2023 Substance Use Answer Date Recorded Used prescription meds for non-medical reasons N ot on file 06/24/2023 Used illegal drugs past 12 months Not on file 06/24/2023 Sex and Gender Information Value Date Recorded Sex Assigned at Not on file Legal Sex Male 1:42 PM CDT Gender Identity Not on file Sexual Orientation Not on file Plan of Treatment Not on file Insurance [employer] Care Teams Service Vehicle Operator Relationship Specialty Start Date End Date Ronal Cotter MD [address] [place] [address] PCP - General Family Medicine 10/21/22
--- OUTSIDE RECORDS SUMMARY | 2025-03-18 14:47 | XMS_ITS | Clinical Summary ---
Author Organization [facility] Address [address] [place] [address] Care Team Providers Care Physical Medicine Teacher Name Role Phone Roxanne Yoder MD Primary Care Provider [phone] Social History Tobacco Use Types Packs/Day Years Used Date Smoking Tobacco: Never Assessed Sex and Gender Information Value Date Recorded Sex Assigned at Not on file Legal Sex Male 4:48 PM EST Gender Identity Not on file Sexual Orientation Not on file Plan of Treatment Health Maintenance Due Date Last Done Comments CT Colonography 1974 Colonoscopy 1974 Colorectal Cancer Screening 1974 FIT-DNA 1974 FIT 1974 FOBT 1974 Sigmoidoscopy 1974 Hepatitis B (HepB) Vaccine ( 1 of 3 - 19+ 3-dose series) 1993 Tdap/Td Vaccine >11 yo (1 - Tdap) 1993 Annual SDOH Screening 06/06/2024 Pneumococcal Vaccines >50 yo (1 of 1 - PCV) 2024 Shingles (Shingrix) (1 of 2) 2024 Influenza Vaccine (#1) 2025 RSV 50+ and (1 - 1 -dose 75+ series) 2049 Haemophilus Influenzae Type B (Hib) Vaccine Aged Out No longer eligible b ased on patient's age to complete this topic Hepatitis A (HepA) Vaccine Aged Out N o longer eligible based on patient's age to complete this topic Meningococcal ACWY Aged Out No longer eligible based on patient's age to complete this topic Polio (IPV) Aged Out No longer eligi ble based on patient's age to complete this topic Rotavirus (RV) Vaccine Aged Out No lo nger eligible based on patient's age to complete this topic Care Teams Physical Medicine Teacher Relationship Specialty Start Date End Date Roxanne Yoder MD [address] [place] [address] [place] [address] PCP - General 12/03/10
--- OUTSIDE RECORDS SUMMARY | 2025-03-18 14:47 | XMS_ITS | Encounter Summary ---
Author Organization [employer] ([place], [place], [place], [place]) Address [address] [place] [address] Care Team Providers Care Petroleum Production Engineer Name Role Phone Ronal Cotter MD Primary Care Provider [phone] Encounter Details Date Type Department Care Team (Late st Contact Info) Description 10/21/2022 Outside Orders [facility] Admitting [address] [place] [address] Jacqueline Matute, LOCAL TRUCK DRIVER [address] [facility], [address] [place] [address] Inguinal pain, unspecified laterality (Primary Dx) Social History Tobacco Use Types [...] documented as of this encounter Results * (ABNORMAL) Renal Function Panel (10/21/2022 4:03 PM EDT) Sodium 139 136 - 145 meq/L 10/21/2022 4:41 PM EDT [facility] Potassium 4.2 3.5 - 5.1 meq/L 10/21/2022 4:41 PM T [facility] Chloride 103 98 - 107 meq/L 10/21/2022 4:41 PM EDT [facility] CO2 32 21 - 32 meq/L 10/21/2022 4:41 PM T [facility] Creatinine 1.15 0.70 - 1.20 mg/dL 10/21/2022 4:41 PM [facility] Anion Gap 8 10/21/2022 4:41 PM EDT [facility] BUN 22(H) 7 - 18 mg/dL 10/21/2022 4:41 PM [facility] Glucose 96 70 - 99 mg/dL 10/21/2022 4:41 PM T [facility] Calcium 8.9 8.5 - 10.1 mg/dL 10/21/2022 4:41 PM [facility] Phosphorus 4.1 2.6 - 4.9 mg/dL 10/21/2022 4:41 PM [facility] Albumin 3.8 3.4 - 5.0 g/dL 10/21/2022 4:41 PM [facility] Osmolality Calc 280.7 4:41 PM [facility] eGFR (mL/min/1.73m2) >60 >=60 mL/min/1.7 3m2 10/21/2022 4:41 PM [facility] Comment:ESTIMATED GFR IS NOT ACCURATE CREATININE CLEARANCE IN PREDICTING GLOMERULAR FILTRATION RATE. ESTIMATED GFR IS NOT APPLICABLE FOR DIALYSIS PATIENTS. Blood Venipuncture / Unknown 10/21/2022 4:03 PM EDT 10/21/2022 4:03 PM EDT [facility] - 10/21/2022 4:41 PM EDT As of 08-20-2022 date, reported eGFR is based on the CKD-EPI 2020 equation that does not use a race coefficient. Laboratory Report for eGFR of 45-59 mL/min/1.73m2- For eGFR of 45-59 mL/min/1.73m2, NKF KDOQI and KDIGO guidelines recommend one - time confirmation of eGFR calculated using both creatinine and cystatin C. Cystatin C is recommended in the outpatient patient setting for purposes of confirming chronic kidney disease, rather than in the acute setting for acute kidney injury or failure. us Jacqueline Matute APRN LAB BLOOD ORDERABLES Final Result [facility] [address] [place], [place] [address] [phone] documented in this encounter Visit Diagnoses Diagnosis Inguinal pain, unspecified laterality- Primary documented in this encounter Care Teams Petroleum Production Engineer Relationship Specialty Start Date End Date Ronal Cotter MD [address] [place] [address] PCP - General Family Medicine 10/21/22 documented as of this encounter
--- OUTSIDE RECORDS SUMMARY | 2025-03-18 14:47 | XMS_ITS | Clinical Summary ---
Author Organization [employer] ([place], [place], [place], [place]) Address [address] [place] [address] Care Team Providers Care Core Winding Operator Name Role Phone Ronal Cotter MD Primary Care Provider [phone] Allergies No known active allergies Social History [...] Date Nima rded Speak language other than Bahraini at home Not on file 06/24/2023 Want [...] 1974 Colonoscopy 1974 Colorectal Cancer Screening 1974 FOBT/FIT 1974 Fit-DNA (Cologuard) 1974 Sigmoidoscopy 1974 Depression Screening (12+) 1986 Tobacco Cessation Counseling and Screening (12+) 07/20 HIV Screening 1989 Hepatitis C Screening 1992 DTAP/TDAP/TD VACCINES (1 - Tdap) 1993 Lipid Panel 2009 Pneumococcal 50+ years (1 of 1 - PCV) 2024 Shingles Vaccine (Zoster) (1 of 2) 2024 COVID-19 VACCINE (1 - season) 2025 Influenza Vaccine (#1) 2025 Insurance [facility] Care Teams Core Winding Operator Relationship Specialty Start Date End Date Ronal Cotter MD [address] [place] [address] PCP - General Family Medicine 10/21/22
--- OUTSIDE RECORDS SUMMARY | 2025-03-18 14:47 | XMS_ITS | Clinical Summary ---
Author Organization [facility] Address [address] [place] [address] Care Team Providers Care Administrative Volunteer Name Role Phone Ronal Cotter MD Primary Care Provider [phone] Family History Medical History Relation Name Comments Diabetes Father Heart attack Father Hypertension Father Other cancer Other 1 Heart attack Other 2 Relation Name Status Comments Father Other 1 Other 2 Social History Tobacco Use Types Packs/Day Years Used Date Smoking Tobacco: Never Alcohol Use Standard Drinks/Week Comments No 0 (1 standard drink = 0.6 oz pur e alcohol) Sex and Gender Information Value Date Recorded Sex Assigned at Not on file Legal Sex Male 8:54 PM EDT Gender Identity Not on file Sexual Orientation Not on file Last Filed Vital Signs Vital Sign Reading Time Taken Comments Blood Pressure - - Pulse - - Temperature - - Respiratory Rate - - Oxygen Saturation - - Inhaled Oxygen Concentration - - Weight 109 kg (240 lb 8 oz) 02/18/2015 10:25 AM EDT Height 172.7 cm (5' 8 ) 02/18/2015 10:25 AM EDT Body Mass Index 36.57 02/18/2015 10:25 AM EDT Plan of Treatment Health Maintenance Due Date Last Done Comments [facility]-Depression Screening 1974 [facility]-/Child/Adol SDOH Screenings 1974 [facility]- SDOH Screenings 1992 [facility]-Adult SDOH Screenings 1992 [facility]-DTaP,Tdap,and Td Vaccine s (1 - Tdap) 1993 [facility]-Hepatitis B Vaccines (1 of 3 - 19+ 3-dose series) 1993 CT Colonography 2019 Colonoscopy 2019 FIT-DNA 2019 FIT 2019 FOBT 2019 Sigmoidoscopy 2019 [facility]-Colorectal Cancer Screening 2019 [facility]-Pneumococcal Vaccine: 50 + Years (1 of 1 - PCV) 2024 [facility]-Zoster Vaccines (1 of 2) 2024 [id number] Vaccine (1 - 20 24-25 season) 2025 [facility]-Influenza Vaccine (#1) 2025 HPV Vaccines Aged Out No longer eligi ble based on patient's age to complete this topic [facility]-HIB Vaccines Aged Out No longer e ligible based on patient's age to complete this topic [facility]-Hepatitis A Vaccines Aged Out No longer eligible based on patient's age to complete this topic [facility]-IPV Vaccines Aged Out No longer e ligible based on patient's age to complete this topic [facility]-Rotavirus Vaccines Aged Out No lo nger eligible based on patient's age to complete this topic Insurance [employer] Care Teams Administrative Volunteer Relationship Specialty Start Date End Date Ronal Cotter MD [address] [place], [place] [id number] PCP - General 10/17/20
[2025-03-18 14:49] LABS: Microscopic, Urine URINE MICROSCOPIC (MICROSCOPIC)
[2025-03-18 16:07] LABS: Blood Urea Nitrogen 17 mg/dl (9-20); Creatinine,Serum 1.10 mg/dl (0.66-1.25); Estimated Glomerular Filt Rate 71 ml/min (>60); GFR (African American) 86 ML/MIN (>60)
[2025-03-18 17:22] LABS: Bilirubin,Urine Negative (Negative); Color,Urine YELLOW (Yellow); Glucose,Urine (UA) Negative (Negative); Ketones,Urine Negative (Negative); Leukocyte Esterase,Urine Negative (Negative); PH,Urine 6.0 (5.0-8.5); Protein,Urine Negative (Negative); Specific Gravity, Urine 1.015 (1.005-1.030); Urobilinogen,Urine 0.2 EU/dl (0.2)
[2025-03-18 17:49] LABS: Squamous Epithelial Cell,Urine Occasional #/hpf (0-5)
[2025-03-19 08:16] LABS: PSA, Free 0.23 ng/mL
== END 2025-03-18 23:59 | disposition home or self-care (01) ==
LOC: LAB 14:44
PROVIDERS: PCP Nurse Practitioner Family; Visit Provider Urology
DX: N40.0 Benign prostatic hyperplasia without lower urinary tract symptoms (principal); R10.20 Pelvic and perineal pain unspecified side
CPT/HCPCS: 36415; 81001; 82565; 84153; 84154; 84520